=== PATIENT | female | born 1990 | race Caucasian/White ===

== ENCOUNTER 2017-11-23 16:12 | Observation (INO) ==
[2017-11-23 17:08] LABS: Basophils # 0.1 K/mcL (0.0-0.2); Basophils % 0.4 %; Bilirubin,Urine Negative (Negative); Blood,Urine Negative (Negative); Clarity,Urine Clear (Clear); Color,Urine Yellow (Yellow); Eosinophils # 0.2 K/mcL (0.0-0.6); Eosinophils % 1.2 %; Glucose,Urine (UA) Normal (Normal); Hematocrit 36.9 % (35.3-44.9); Hemoglobin 12.5 g/dL (11.5-15.4); Immature Granulocytes % 0.5 % (0-4); Ketones,Urine Negative (Negative); Leukocyte Esterase,Urine Small (Negative); Mean Corpuscular HGB Conc 33.9 g/dL (31.6-35.5); Mean Corpuscular Hemoglobin 31.8 pg (28.0-33.3); Mean Corpuscular Volume 93.9 fL (83.0-100.0); Mean Platelet Volume 9.6 fL (9.4-12.4); Monocytes % 6.8 %; Neutrophils # 10.1 K/mcL (1.6-8.9); Nitrite,Urine Negative (Negative); PH,Urine 6.5 pH Units (5.0-8.0); Platelet Count 271 K/mcL (140-400); Protein,Urine Negative (Neg-Trace); Red Blood Count 3.93 M/mcL (3.82-4.97); Red Cell Distribution Width 13.2 % (11.5-14.5); Segmented Neutrophils % 70.1 %; Specific Gravity,Urine 1.018 (1.010-1.025); Urobilinogen,Urine Normal (Normal)
[2017-11-23 17:10] LABS: Bacteria,Urine None Seen per hpf (None-Few); Hyaline Casts,Urine None Seen per lpf (None-Few); RBC,Urine 0-3 per hpf (0-3); Squamous Epithelial Cell,Urine Many per lpf (None-Few); WBC,Urine 0-3 per hpf (0-3)
[2017-11-23 17:20] LABS: Amphetamine Screen,Urine Negative ng/mL (Cutoff=1000); Barbiturate Screen,Urine Negative ng/mL (Cutoff=200); Benzodiazepines Screen,Urine Negative ng/mL (Cutoff=200); Cannabinoid Screen,Urine Negative ng/mL (Cutoff = 50); Cocaine Screen,Urine Negative ng/mL (Cutoff= 300); Opiate Screen,Urine Negative ng/mL (Cutoff=300); Phencyclidine Screen,Urine Negative ng/mL (Cutoff=25)
[2017-11-23 17:27] LABS: Alanine Aminotransferase 18 Units/L (7-52); Aspartate Amino Transferase 16 Units/L (13-39); BUN/Creatinine Ratio 17 (6-26); Blood Urea Nitrogen 10 mg/dL (6-20); Lactate Dehydrogenase 131 Units/L (140-271); Uric Acid 5.4 mg/dL (2.3-7.6); eGFR For Non-African Americans > 60 (> 60)
[2017-11-23 17:35] LABS: Protein/Creatinine Ratio,Urine 0.09 mg/mg (0.00-0.20)
--- NOTE | 2017-11-23 17:51 | OB/GYN Progress Note ---
Date of Encounter: 11/23/17 Time of Encounter: 17:48 - Assessment and Plan (1) 24 weeks gestation of Current Visit: Yes Status: Acute (2) Elevated blood pressure affecting in second trimester, antepartum Current Visit: Yes Status: Acute Will start labetalol 100mg PO BID per consultation with Dr. Lawler. Pt to follow -up for BP check on Tuesday in office. Preeclampsia precautions given. Discharge home. Subjective - Subjective Interval history: 27 year-old presenting at 24w4d with elevated blood pressure in office today. She reports occassional headaches that resolve after hydration. She denies any headache now. No vision changes or epigastric pain. No other complaints. Good FM. Pt reports she was on triamterene prior to but hasn't been on anything since prior to conception. Antepartum ROS: movement normal, no loss of fluid, no vaginal bleeding, no contractions Objective - Vital Signs Vital Signs: Intake and Output 11/23/17 11/23/17 11/23/17 07:59 15:59 23:59 Other: Weight 88.7 kg Patient Weight 11/23/17 23:59 Weight 88.7 kg - Exam FHR: category 1 FHR comments: FHT reassuring for GA, baseline 135 Auscultation: bilateral: normal Abdomen: Present: soft, gravid. Absent: tenderness Uterus: Absent: tenderness Comments: reflexes normal - Labs Labs: Abnormal lab results WBC 14.5 K/mcL (4.3-11.1) H 11/23/17 16:40 Neutrophils # 10.1 K/mcL (1.6-8.9) H 11/23/17 16:40 Creatinine 0.58 mg/dL (0.60-1.20) L 11/23/17 16:40 Lactate Dehydrogenase 131 Units/L (140-271) L 11/23/17 16:40 Ur Leukocyte Esterase Small (Negative) H 11/23/17 16:40 Ur Squamous Epith Cells Many per lpf (None-Few) H 11/23/17 16:40 Ur Culture Indicated? NO. (NO) A 11/23/17 16:40
== END 2017-11-23 17:51 | disposition home or self-care (01) ==
LOC: 1NENULAB
PROVIDERS: ADMIT Registered Nurse; ATTEND Registered Nurse

== ENCOUNTER 2018-02-20 14:49 | Observation (INO) ==
[2018-02-20 16:06] LABS: Basophils # 0.1 K/mcL (0.0-0.2); Basophils % 0.6 %; Eosinophils # 0.2 K/mcL (0.0-0.6); Eosinophils % 1.8 %; Hematocrit 39.8 % (35.3-44.9); Immature Granulocytes % 0.7 % (0-4); Lymphocytes # 2.3 K/mcL (0.6-4.6); Lymphocytes % 18.6 %; Mean Corpuscular HGB Conc 35.2 g/dL (31.6-35.5); Mean Corpuscular Hemoglobin 31.5 pg (28.0-33.3); Mean Corpuscular Volume 89.6 fL (83.0-100.0); Mean Platelet Volume 10.4 fL (9.4-12.4); Monocytes # 0.8 K/mcL (0.0-1.3); Monocytes % 6.8 %; Neutrophils # 8.6 K/mcL (1.6-8.9); Platelet Count 245 K/mcL (140-400); Red Blood Count 4.44 M/mcL (3.82-4.97); Red Cell Distribution Width 13.9 % (11.5-14.5); Segmented Neutrophils % 71.5 %
[2018-02-20 16:24] LABS: Alanine Aminotransferase 12 Units/L (7-52); Aspartate Amino Transferase 14 Units/L (13-39); BUN/Creatinine Ratio 14 (6-26); Blood Urea Nitrogen 8 mg/dL (6-20); Lactate Dehydrogenase 162 Units/L (140-271); Uric Acid 6.4 mg/dL (2.3-7.6); eGFR For Non-African Americans > 60 (> 60)
[2018-02-20 16:39] LABS: Amphetamine Screen,Urine Negative ng/mL (Cutoff=1000); Barbiturate Screen,Urine Negative ng/mL (Cutoff=200); Benzodiazepines Screen,Urine Negative ng/mL (Cutoff=200); Cannabinoid Screen,Urine Negative ng/mL (Cutoff = 50); Cocaine Screen,Urine Negative ng/mL (Cutoff= 300); Opiate Screen,Urine Negative ng/mL (Cutoff=300); Phencyclidine Screen,Urine Negative ng/mL (Cutoff=25); Protein/Creatinine Ratio,Urine 0.1 mg/mg (0.00-0.20)
--- NOTE | 2018-02-20 17:57 | Discharge Summary ---
Date of Encounter: 02/20/18 Time of Encounter: 17:57 - Discharge Diagnosis (1) 36 weeks gestation of Priority: Primary Status: Acute Comments: Patient sent from office for observation due to elevated blood pressure in (2) NST (non-stress test) reactive Priority: Secondary Status: Acute Comments: FHR 120bpm, moderate variability, +15x15 accels, no decels. Rare contraction (3) Gestational diabetes Priority: Secondary Status: Acute Comments: Continue metformin 3 times a day as previously ordered along with blood sugar checks as ordered by Dr. Mayfield Qualifiers: Gestational diabetes mellitus control: oral hypoglycemic-controlled Trimester: third trimester Qualified Code(s): O24.415 - Gestational diabetes mellitus in , controlled by oral hypoglycemic drugs (4) Gestational HTN Priority: Secondary Status: Acute Comments: Continue labetalol 100 mg twice a day. Follow-up in office on Tuesday for blood pressure check and scheduled NST Qualifiers: Trimester: third trimester Qualified Code(s): O13.3 - Gestational [-induced] hypertension without significant proteinuria, third trimester - Discharge Medications Home Medications: Citalopram Hydrobromide [Celexa] 20 mg PO DAILY 11/23/17 [History] Labetalol [Trandate] 100 mg PO BID #60 tablet 11/23/17 [Rx] Pnv Cmb#21/Iron/Folic Acid [ Complete Caplet] 1 each PO DAILY 11/23/17 [History] metFORMIN 500 mg PO TID 02/20/18 [History] Allergies/Adverse Reactions: Allergy/AdvReac Type Severity Reaction Status Date / Time No Known Allergies Allergy Verified 11/03/15 14:58 Data Procedures and tests throughout hospitalization: Laboratory Tests 02/20/18 02/20/18 02/20/18 15:40 15:40 15:45 WBC 12.1 H RBC 4.44 Hgb 14.0 Hct 39.8 MCV 89.6 MCH 31.5 MCHC 35.2 RDW 13.9 Plt Count 245 MPV 10.4 Immature Gran % 0.7 Seg Neutrophils % 71.5 Lymphocytes % 18.6 Monocytes % 6.8 Eosinophils % 1.8 Basophils % 0.6 Neutrophils # 8.6 Lymphocytes # 2.3 Monocytes # 0.8 Eosinophils # 0.2 Basophils # 0.1 BUN Creatinine Est GFR ( Amer) Est GFR (Non-Af Amer) BUN/Creatinine Ratio POC Glucose Uric Acid AST ALT Lactate Dehydrogenase Urine Creatinine 135 Protein/Creatinin Ratio 0.10 Urine Total Protein 13 Urine Opiates Screen Negative Ur Barbiturates Screen Negative Ur Phencyclidine Scrn Negative Ur Amphetamines Screen Negative U Benzodiazepines Scrn Negative Urine Cocaine Screen Negative U Marijuana (THC) Screen Negative Ur Drug Screen Interp See Below 02/20/18 02/20/18 15:46 16:58 WBC RBC Hgb Hct MCV MCH MCHC RDW Plt Count MPV Immature Gran % Seg Neutrophils % Lymphocytes % Monocytes % Eosinophils % Basophils % Neutrophils # Lymphocytes # Monocytes # Eosinophils # Basophils # BUN 8 Creatinine 0.56 L Est GFR ( Amer) > 60 Est GFR (Non-Af Amer) > 60 BUN/Creatinine Ratio 14 POC Glucose 88 Uric Acid 6.4 AST 14 ALT 12 Lactate Dehydrogenase 162 Urine Creatinine Protein/Creatinin Ratio Urine Total Protein Urine Opiates Screen Ur Barbiturates Screen Ur Phencyclidine Scrn Ur Amphetamines Screen U Benzodiazepines Scrn Urine Cocaine Screen U Marijuana (THC) Screen Ur Drug Screen Interp Labs on day of discharge: Labs from last 24 hours 02/20/18 02/20/18 02/20/18 16:58 15:46 15:45 WBC 12.1 H RBC 4.44 Hgb 14.0 Hct 39.8 MCV 89.6 MCH 31.5 MCHC 35.2 RDW 13.9 Plt Count 245 MPV 10.4 Immature Gran % 0.7 Seg Neutrophils % 71.5 Lymphocytes % 18.6 Monocytes % 6.8 Eosinophils % 1.8 Basophils % 0.6 Neutrophils # 8.6 Lymphocytes # 2.3 Monocytes # 0.8 Eosinophils # 0.2 Basophils # 0.1 BUN 8 Creatinine 0.56 L Est GFR ( Amer) > 60 Est GFR (Non-Af Amer) > 60 BUN/Creatinine Ratio 14 POC Glucose 88 Uric Acid 6.4 AST 14 ALT 12 Lactate Dehydrogenase 162 Urine Creatinine Protein/Creatinin Ratio Urine Total Protein Urine Opiates Screen Ur Barbiturates Screen Ur Phencyclidine Scrn Ur Amphetamines Screen U Benzodiazepines Scrn Urine Cocaine Screen U Marijuana (THC) Screen Ur Drug Screen Interp 02/20/18 02/20/18 15:40 15:40 WBC RBC Hgb Hct MCV MCH MCHC RDW Plt Count MPV Immature Gran % Seg Neutrophils % Lymphocytes % Monocytes % Eosinophils % Basophils % Neutrophils # Lymphocytes # Monocytes # Eosinophils # Basophils # BUN Creatinine Est GFR ( Amer) Est GFR (Non-Af Amer) BUN/Creatinine Ratio POC Glucose Uric Acid AST ALT Lactate Dehydrogenase Urine Creatinine 135 Protein/Creatinin Ratio 0.10 Urine Total Protein 13 Urine Opiates Screen Negative Ur Barbiturates Screen Negative Ur Phencyclidine Scrn Negative Ur Amphetamines Screen Negative U Benzodiazepines Scrn Negative Urine Cocaine Screen Negative U Marijuana (THC) Screen Negative Ur Drug Screen Interp See Below Date of admission: 02/20/18 14:49 Primary care physician: PCP NONE Discharging clinician: Gertrudis Rios Anticipated date of discharge: 02/20/18 - Patient Status Disposition: Home, Self-Care Condition: Good Functional capacity at discharge: independent ambulation Overall status at discharge: patient is progressing back to baseline - Discharge Instructions Instructions: Preeclampsia and Eclampsia (DC) Follow Up With: NONE,PCP [Primary Care Provider] - Additional Instructions: Return to office on Tuesday02/24/18 for BP check - Diet and Activity Activity: resume usual activities as tolerated Diet: diabetic diet Hospital Course [employer] Hospital course: Patient arrived from the office for elevated blood pressures. PIH labs all returned within normal limits. Occasional elevated blood pressure noted here in labor and delivery. Dr. Saul was consulted for plan of care. Patient will be discharged home to be seen in office on Tuesday for blood pressure check. Patient had a reactive NST while here. Cervix 1 cm/60%/-2 station Time Attestation: Total time spent providing and/or coordinating discharge services: Time Spent: Less than 30 minutes Exam - Constitutional General appearance IM: A&O X 3, pleasant, no acute distress, answers questions appropriately - Respiratory Respiratory exam: Present: CTAB - Cardiovascular Cardiovascular exam IM: Present: RRR, +S1, +S2 - GI/Abdominal GI/Abdominal exam IM: normal bowel sounds - Rectal Rectal exam: deferred - External exam: normal external exam - Extremities Exam Extremities exam IM: Present: full ROM, normal capillary refill, normal inspection - Neurological Exam Neurological exam: alert, normal gait, oriented X3, reflexes normal - VTE Reasons for not Prescribing Prophylaxis: Treatment not Indicated - Low risk for VTE
== END 2018-02-20 18:15 | disposition home or self-care (01) ==
LOC: 1NENULAB
PROVIDERS: ADMIT Registered Nurse; ATTEND Registered Nurse

== ENCOUNTER 2018-02-22 19:35 | Observation (INO) ==
[2018-02-22 19:56] VITALS: BP 151/83
[2018-02-22 20:34] LABS: Protein/Creatinine Ratio,Urine 0.11 mg/mg (0.00-0.20)
[2018-02-22 20:35] LABS: Basophils # 0.1 K/mcL (0.0-0.2); Basophils % 0.5 %; Eosinophils # 0.2 K/mcL (0.0-0.6); Eosinophils % 1.4 %; Hematocrit 39.4 % (35.3-44.9); Hemoglobin 13.4 g/dL (11.5-15.4); Immature Granulocytes % 0.5 % (0-4); Lymphocytes # 2.9 K/mcL (0.6-4.6); Lymphocytes % 22.9 %; Mean Corpuscular Hemoglobin 31.5 pg (28.0-33.3); Mean Corpuscular Volume 92.5 fL (83.0-100.0); Mean Platelet Volume 10.4 fL (9.4-12.4); Monocytes # 0.9 K/mcL (0.0-1.3); Neutrophils # 8.5 K/mcL (1.6-8.9); Platelet Count 232 K/mcL (140-400); Red Blood Count 4.26 M/mcL (3.82-4.97); Red Cell Distribution Width 13.9 % (11.5-14.5); Segmented Neutrophils % 67.7 %
[2018-02-22 20:46] LABS: Alanine Aminotransferase 12 Units/L (7-52); Aspartate Amino Transferase 13 Units/L (13-39); BUN/Creatinine Ratio 16 (6-26); Blood Urea Nitrogen 9 mg/dL (6-20); Lactate Dehydrogenase 136 Units/L (140-271); Uric Acid 6.2 mg/dL (2.3-7.6); eGFR For Non-African Americans > 60 (> 60)
[2018-02-22 21:05] LABS: Amphetamine Screen,Urine Negative ng/mL (Cutoff=1000); Barbiturate Screen,Urine Negative ng/mL (Cutoff=200); Benzodiazepines Screen,Urine Negative ng/mL (Cutoff=200); Cannabinoid Screen,Urine Negative ng/mL (Cutoff = 50); Cocaine Screen,Urine Negative ng/mL (Cutoff= 300); Opiate Screen,Urine Negative ng/mL (Cutoff=300); Phencyclidine Screen,Urine Negative ng/mL (Cutoff=25)
--- NOTE | 2018-02-23 08:09 | OB/GYN Progress Note ---
Date of Encounter: 02/22/18 Time of Encounter: 21:00 - Assessment and Plan (1) Gestational HTN Status: Acute BP borderline - responded to additional 100mg labetalol PO - decrease to 120s/80s Increase labetalol to 200 mg twice a day Qualifiers: Trimester: third trimester Qualified Code(s): O13.3 - Gestational [-induced] hypertension without significant proteinuria, third trimester (2) Gestational diabetes Status: Acute Continue monitoring and treatment as planned Qualifiers: Gestational diabetes mellitus control: oral hypoglycemic-controlled Trimester: third trimester Qualified Code(s): O24.415 - Gestational diabetes mellitus in , controlled by oral hypoglycemic drugs (3) NST (non-stress test) reactive Status: Acute (4) 37 weeks gestation of Status: Acute Follow-up with Dr. Mayfield as scheduled Labor parameters discussed Discharge home Subjective - Subjective Principal diagnosis: elevated bp in pregnany Interval history: Ms. Thompson presents with reports of elevated blood pressures on home monitoring. She endorses good fm and denies lof, vb, ctx. She reports a headache earlier in the day which has now resolved and denies epigastric pain and vision changes. She states she takes labetalol 100 mg twice a day. She took her evening dose at 1830 this evening Antepartum ROS: movement normal, other (elevated bp), no loss of fluid, no vaginal bleeding, no contractions Objective - Vital Signs Vital Signs: Vital Signs Pulse Resp BP 02/22/18 19:47 73 15 151/83 Intake and Output 02/22/18 02/23/18 02/23/18 23:59 07:59 15:59 Other: Weight 96.4 kg - Exam FHR: category 1 Auscultation: bilateral: normal Abdomen: Present: normal appearance, soft, gravid Uterus: Present: normal, firm - Labs Labs: Abnormal lab results WBC 12.5 K/mcL (4.3-11.1) H 02/22/18 20:10 Creatinine 0.58 mg/dL (0.60-1.20) L 02/22/18 20:10 Lactate Dehydrogenase 136 Units/L (140-271) L 02/22/18 20:10 Urine Total Protein 19 mg/dL (1-14) H 02/22/18 20:10
== END 2018-02-22 22:06 | disposition home or self-care (01) ==
LOC: 1NENULAB
PROVIDERS: ADMIT Advanced Practice Midwife; ATTEND Advanced Practice Midwife

== ENCOUNTER 2018-03-08 06:00 | Inpatient (IN) ==
[2018-03-08] MEDS ORDERED: Ringers Solution, Lactated 1,000 ML ONE (06:14)
[2018-03-08] MEDS ORDERED: Ondansetron 4 MG/2 ML VIAL IVP PRN (06:21)
[2018-03-08] MEDS ORDERED: Metoclopramide 10 MG/2 ML VIAL IVP PRN (06:21)
[2018-03-08] MEDS ORDERED: Famotidine 20 MG/2 ML VIAL IVP PRN (06:21)
[2018-03-08] MEDS ORDERED: Naloxone 0.4 MG/ML INJ IVP PRN (06:21)
[2018-03-08] MEDS ORDERED: *HR* Nalbuphine 10 MG/ML AMPUL IVP PRN (06:21)
[2018-03-08] MEDS ORDERED: Ringers Solution, Lactated 1,000 ML IVC SCH (06:30)
[2018-03-08] MEDS ORDERED: Oxytocin 20 units/ LR 1000 mL 20 UNIT/1,000 ML BAG IVC SCH (06:30)
[2018-03-08 06:42] LABS: Basophils # 0.1 K/mcL (0.0-0.2); Basophils % 0.5 %; Eosinophils # 0.1 K/mcL (0.0-0.6); Eosinophils % 0.9 %; Hematocrit 42.4 % (35.3-44.9); Hemoglobin 14.3 g/dL (11.5-15.4); Immature Granulocytes % 0.8 % (0-4); Lymphocytes # 3.6 K/mcL (0.6-4.6); Lymphocytes % 27.2 %; Mean Corpuscular HGB Conc 33.7 g/dL (31.6-35.5); Mean Corpuscular Volume 91.8 fL (83.0-100.0); Mean Platelet Volume 11.3 fL (9.4-12.4); Monocytes # 0.8 K/mcL (0.0-1.3); Monocytes % 6.4 %; Neutrophils # 8.5 K/mcL (1.6-8.9); Platelet Count 244 K/mcL (140-400); Red Blood Count 4.62 M/mcL (3.82-4.97); Red Cell Distribution Width 13.7 % (11.5-14.5); Segmented Neutrophils % 64.2 %
[2018-03-08 06:45] LABS: Amphetamine Screen,Urine Negative ng/mL (Cutoff=1000); Barbiturate Screen,Urine Negative ng/mL (Cutoff=200)
[2018-03-08 06:47] LABS: Benzodiazepines Screen,Urine Negative ng/mL (Cutoff=300); Cannabinoid Screen,Urine Negative ng/mL (Cutoff = 50); Cocaine Screen,Urine Negative ng/mL (Cutoff= 300); Opiate Screen,Urine Negative ng/mL (Cutoff=300); Phencyclidine Screen,Urine Negative ng/mL (Cutoff=25)
[2018-03-08 07:01] LABS: Glucose 107 mg/dL (70-105)
[2018-03-08 08:22] LABS: Alanine Aminotransferase 17 Units/L (7-52); Aspartate Amino Transferase 19 Units/L (13-39); BUN/Creatinine Ratio 16 (6-26); Blood Urea Nitrogen 11 mg/dL (6-20); Lactate Dehydrogenase 201 Units/L (140-271); Uric Acid 7.3 mg/dL (2.3-7.6); eGFR For Non-African Americans > 60 (> 60)
--- NOTE | 2018-03-08 08:38 | OB/GYN History & Physical ---
Date of Encounter: 03/08/18 Time of Encounter: 08:32 Assessment and Plan (1) 39 weeks gestation of Current visit: Yes Status: Acute Augmentation of labor (2) Chronic hypertension affecting Current visit: Yes Status: Acute Given the additional labetalol to make her 200 mg dose this morning. Continue to monitor for s/sx pre-e. Labs pending this AM (3) SROM (spontaneous rupture of membranes) Current visit: Yes Status: Acute Pitocin augmentation in anticipation of vaginal delivery. Now 11 hours since SROM and not symone regularly. GBS is negative. Will monitor temp throughout labor and . (4) Gestational diabetes Current visit: No Status: Acute accuchecks q 2 hours Qualifiers: Gestational diabetes mellitus control: oral hypoglycemic-controlled Trimester: third trimester Qualified Code(s): O24.415 - Gestational diabetes mellitus in , controlled by oral hypoglycemic drugs History of Present Illness Chief complaint: induction of labor HPI: Ms. Thompson is a 27 year old female G1 at 39 4/7 weeks presents to labor and delivery for induction of labor due to term with chronic hypertension and gestational diabetes. She states last night around 9 PM she felt warmth between her legs and fluid. She was unsure if it was just mucus. She slept and got up this morning to shower and had clear fluid run down her legs. She denies any contractions or vaginal bleeding. She reports good movement. She is unsure if she has felt any more leaking since this morning. She took half of her labetalol dose this morning because she does not like the way she feels with a full dose. She is a gestational diabetic controlled on TID metformin. GBS negative 02/09/18 O positive Rubella immune varicella immune hep b negative HIV negative Past Med Surg Social Fam HX - Past Medical History Medical history: hypertension Additional medical history: pt reports had HTN before Psychiatric history: anxiety, depression - Past Surgical History Surgical History: other Additional surgical history: T&A - Social History Smoking Status: Never smoker Smokeless Tobacco Status: No Alcohol use: rarely Drug use: none - Family History Father Adopted: No Family Member Ethnicity: Non- Living Status: Still Living Hx Family Cardiac Disorders: No Hx Family Respiratory Disorders: No Hx Family Cancer: No Hx Family GI Disorders: No Hx Family Genitourinary Disorders: No Hx Family Endocrine Disorder: Yes (type 2) Hx Family Musculoskeletal Disorders: No Hx Family Neuromuscular Disorders: No Hx Family Neurologic Disorders: No Hx Family HEENT Disorders: No Hx Family Autoimmune Disorders: No Hx Family Reproductive Disorders: No Hx Family Psychosocial Disorders: No Hx Family Medical Disorders: No Obstetrical History - Pregnancies : 1 - History/Complications History/Complications: chronic hypertension, GDM A2 on Metformin Medications and Allergies Citalopram Hydrobromide [Celexa] 20 mg PO DAILY 11/23/17 [History] Pnv Cmb#21/Iron/Folic Acid [ Complete Caplet] 1 each PO DAILY 11/23/17 [History] metFORMIN 500 mg PO TID 02/20/18 [History] Labetalol HCl 200 mg PO BID #30 tablet 02/22/18 [Rx] Allergy/AdvReac Type Severity Reaction Status Date / Time No Known Allergies Allergy Verified 03/08/18 06:17 Review of System OB All systems PM: reviewed and no additional remarkable complaints except as stated - Constitutional Constitutional ROS IM: no chills, no fever(s), no headache(s) - Cardiovascular Cardiovascular: no chest pain - Respiratory Respiratory: no cough, no dyspnea - Gastrointestinal Gastrointestinal: cramping, no abdominal pain, no nausea, no vomiting - Menstruation Menstruation: amenorrhea - Psychiatric Psychiatric: anxiety (regarding induction with possible bethea catheter) Exam - Constitutional Constitutional: well developed, well nourished, no acute distress, obese - HEENT HEENT: EOMI - Neck Neck exam: full ROM - Lungs Respiratory exam: CTAB - Cardiovascular Cardiovascular exam: RRR - Abdomen Abdomen: Present: bowel sounds normal, gravid, non tender - Extremities Extremities exam: warm - Vulva Vulva: bilateral: normal - Vagina Vagina: Present: discharge (pooling, + nitrazine, + ferning) - Cervix Dilation: 1 (on 03/02/18) - Anus/Rectum Anus/Rectum: Present: normal perianal skin Results Result Diagrams: 03/08/18 06:28 03/08/18 06:28 Abnormal lab results WBC 13.2 K/mcL (4.3-11.1) H 03/08/18 06:28 Glucose 107 mg/dL (70-105) H 03/08/18 06:28 All other labs normal. US - abdomen: report reviewed (EFW 3094 gm with DANIELA 11 cm and BPP 8/8 Cephalic presentation on 03/02/18) - VTE Reasons for not Prescribing Prophylaxis: Medical contraindication
[2018-03-08] MEDS ORDERED: *HR* Labetalol 20 MG/4 ML SYRINGE IVP STA ×3 (09:05→12:05)
[2018-03-08 11:22] LABS: Protein/Creatinine Ratio,Urine 0.1 mg/mg (0.00-0.20)
--- NOTE | 2018-03-08 11:24 | Anesthesia Evaluation PreOp ---
Date of Encounter: 03/08/18 Time of Encounter: 11:22 - Past History Planned Operation: GUERLINE Cardiac History: HTN (uncontrolled) Pulmonary History: Denies Any Significant HX SONG PLUGGER History: Other (anxiety, depression) Other Medical History: Other (gestational DM managed w/ metformin) Anesthesia History: No Prior Anesthetic Complications (never had NA; denies personal and family h/o GA complications) : Yes Alcohol Use: rarely Drug use: none Medications and Allergies Citalopram Hydrobromide [Celexa] 20 mg PO DAILY 11/23/17 [History] Pnv Cmb#21/Iron/Folic Acid [ Complete Caplet] 1 each PO DAILY 11/23/17 [History] metFORMIN 500 mg PO TID 02/20/18 [History] Labetalol HCl 200 mg PO BID #30 tablet 02/22/18 [Rx] Allergy/AdvReac Type Severity Reaction Status Date / Time No Known Allergies Allergy Verified 03/08/18 06:17 - Meds/Allergy Pre-op Review Medications Reviewed: Yes Allergies Reviewed: Yes Beta Blockers on Current Med List: Yes If Beta Blockers taken, Date/Time (Last Dose taken): 03/08/2018 @1100 Anesthesia Results - Labs 03/08/18 06:28 03/08/18 06:28 Anesthesia Exam 188/96, HR 75 O2 Sat Height 1.6 m Height 1.6 m Weight 99 kg Weight 99 kg NPO (# of Hours): solids > 8hrs Pain Scale: 0 Pain Scale Used: Numeric (1 - 10) - HEENT Pupil (Motor): Pupils equal Mallampati: II Teeth: Normal Oral Opening: Greater than 3 - SONG PLUGGER LOC: Oriented SONG PLUGGER Motor: Normal RUE, Normal LUE, Normal RLE, Normal LLE, Normal Face SONG PLUGGER Sensory: Normal: RUE, LUE, RLE, LLE, Face - Cardiac Rhythm: Regular Murmur: None - Pulmonary Breath Sounds: bilateral Clear Respiratory Effort: Symmetrical Anesthesia Assess/Plan ASA Score: 2 Level of consciousness: Cooperative, Oriented, Tranquil Anesthetic Plan: Epidural Autologous Blood: No Monitoring Plan: Standard Monitors Recovery Plan: Other
[2018-03-08] MEDS ORDERED: *HR* FentaNYL (PF) 100 MCG/2 ML VIAL EP ONE (11:27)
[2018-03-08] MEDS ORDERED: Bupivacaine-MPF 0.25% 10 ML VIAL EP ONE (11:27)
[2018-03-08] MEDS ORDERED: Lidocaine -MPF 1% 5 ML AMPUL ONE (11:28)
[2018-03-08] MEDS ORDERED: Bupivacaine-MPF 0.25% 10 ML VIAL ONE (11:28)
[2018-03-08] MEDS ORDERED: *HR* FentaNYL (PF) 100 MCG/2 ML VIAL ONE (11:28)
[2018-03-08] MEDS ORDERED: Epidural Premix (fent/bupiv) 110 ML EP SCH (11:30)
--- NOTE | 2018-03-08 14:28 | Anesthesia Procedures ---
Date of Encounter: 03/08/18 Time of Encounter: 13:59 Procedures: Anesthesia - Epidural/Spinal Patient ID/Chart reviewed: Yes Patient examined: Yes OB Eval: Gestational age: 39 weeks 4 days OB Eval: : 1 OB Eval: Hx Para: 0 OB Eval: Contractions: Non-stressed pattern Consent Obtained: Yes Supplemental Oxygen: None/Room Air Site Prep: Aseptic Technique, Sterile prep and drape, Povidone-Iodine 1% Patient position: upright Local Anesthetic: Lidocaine 1% Amount of Local Anesthetic used: 3 Touhy Needle Gauge: 18 Touhy Needle Depth (cm): 7 Catheter Depth at Skin (cm): 12 Test Dose (1.5% Lido + Epi): Volume given (mls): 5 Test Dose Result: Negative Loading Dose: 0.25% Marcaine (mls): 5 Loading Dose: Fentanyl (mcg): 100 Loading Dose Administered: Thru Catheter Infusion Med: 0.125% Bupivacaine w/ 2 mcg/ml Fentanyl Infusion Rate (mls/hr): 14 (w/ demand bolus of 5mL q30min PRN) Catheter Secured in Place: Tegaderm, Tape Interspace Used: L4-L5 Loss of Resistance (REECE): Yes Blood: No CSF: No Paresthesia: No Procedure: successful on 1st attempt; patient tolerated procedure well; VSS Vitals + FHT's: see electronic records for VS entry
[2018-03-08] MEDS ORDERED: *HR* Phenylephrine 10 MG/ML VIAL ONE (14:34)
--- NOTE | 2018-03-08 14:58 | OB Labor Progress Note ---
Date of Encounter: 03/08/18 Time of Encounter: 14:55 Labor Progress Note - Subjective Subjective: Pt comfortable with epidural. - Vital Signs Vital Signs: BP normal range since epidural. - Cervix Cervix: 3/80/-2 - Heart Tones Heart Tones: Late decels noted following completion of epidural procedure. Pt repositioned multiple times. Pitocin off. IV LR bolusing. Oxygen started. - [place] Har[place]: 2-3.5 minutes - Interventions Interventions: Repositioning, oxygen, fluid bolus. Pitocin off. IUPC and FSE placed. - Plan Physician notified: Yes Plan: Dr. Mayfield aware of FHT tracing and interventions.
--- NOTE | 2018-03-09 02:22 | OB Labor Progress Note ---
Date of Encounter: 03/09/18 Time of Encounter: 02:20 Labor Progress Note - Subjective Subjective: Pt comfortable with epidural. - Vital Signs Vital Signs: BP's mild range - Cervix Cervix: 5/80/-2 - Heart Tones Heart Tones: Category II, periods of minimal variability. - [place]: irregular - Interventions Interventions: New FSE placed. - Plan Physician notified: Yes Physician notified details: Dr. Mayfield aware
[2018-03-09] MEDS ORDERED: Penicillin G Potassium 5,000,000 UNIT in 0.9 % Sodium Chloride Mini Bag 100 ML IVPB ONE (08:22)
[2018-03-09] MEDS ORDERED: *HR* Labetalol 20 MG/4 ML SYRINGE IVP ONE ×6 (09:55→18:59)
--- NOTE | 2018-03-09 10:39 | OB Labor Progress Note ---
Date of Encounter: 03/09/18 Time of Encounter: 10:00 Labor Progress Note - Subjective Subjective: Patient comfortable with epidural - Vital Signs Vital Signs: Per RN report as to blood pressures that were 15 minutes apart greater than 160 over greater than 110. Dr. Garvey consulted and agreed to restart labetalol administration tree. - Cervix Cervix: Unchecked at this time - Heart Tones Heart Tones: Baseline 120 Moderate variability Accelerations present 15 x 15 No decelerations FHR category I - [place]: IUPC contractions every 2-4 - Interventions Interventions: Labetalol administered IV slow push. Blood pressure rechecked at 10 minutes and found to be 158/86. No further administration of medication at this time - Plan Physician notified: No Plan: Continue management Recheck BP q [address] Garvey aware of POC and agrees
--- NOTE | 2018-03-09 11:44 | OB Labor Progress Note ---
Date of Encounter: 03/09/18 Time of Encounter: 11:41 Labor Progress Note - Subjective Subjective: Patient comfortable with contractions. - Cervix Cervix: 7/100/-1 - Heart Tones Heart Tones: Baseline 120 Moderate variability Accelerations present 15x15 Few variable decelerations FHR Category II - [place]: IUPC contractions every 2-3 minutes - Interventions Interventions: SVE Position change to deep right lateral - Plan Physician notified: No Plan: Continue active management Frequent position changes Increase pitocin per protocol Anticipate
[2018-03-09] MEDS ORDERED: *HR* Ropivacaine/PF 0.2% 20 ML VIAL ONE (12:59)
[2018-03-09] MEDS: Penicillin G Potassium 2,500,000 UNIT in 0.9 % Sodium Chloride 100 ML IVPB SCH ×2 (13:33→17:27)
--- NOTE | 2018-03-09 15:47 | OB Labor Progress Note ---
Date of Encounter: 03/09/18 Time of Encounter: 15:42 Labor Progress Note - Subjective Subjective: Patient comfortable with epidural but does not tolerate vaginal exams. - Cervix Cervix: 6-7/90/-1 - Heart Tones Heart Tones: Baseline 120 Moderate variability No accelerations Variable decelerations FHR Category II - [place]: IUPC with contractions every 2-5 - Interventions Interventions: SVE - Plan Physician notified: No Plan: Continue management Consult with Dr. Garvey for category II tracing. Continue as planned Anticipate
--- NOTE | 2018-03-09 17:03 | OB Labor Progress Note ---
Date of Encounter: 03/09/18 Time of Encounter: 17:01 Labor Progress Note - Subjective Subjective: Patient comfortable with epidural. Does not tolerate vaginal exams - Cervix Cervix: 6-7/90/-1 - Heart Tones Heart Tones: Baseline 120 Moderate variability Accelerations 15x15 Few variable decelerations FHR Category II - [place]: IUPC with contractions every 2-3 minutes. - Interventions Interventions: SVE Conversation regarding - brought up by patient - Dr. Garvey made aware and agreeable to assume care. - Plan Physician notified: Yes Physician notified details: Dr. Garvey aware that patient is requesting . Agreeable to assume care and proceed with c/s Plan: Stop expectant mangement Transfer of care to Dr. Garvey
[2018-03-09] MEDS ORDERED: Lidocaine/EPI 1:200k 2% PF 20 ML VIAL ONE (19:27)
[2018-03-09] MEDS ORDERED: *HR* Oxytocin 10 UNIT/ML VIAL IM ONE (19:29)
[2018-03-09] MEDS ORDERED: Ringers Solution, Lactated 1,000 ML ONE ×2 (19:49→20:50)
[2018-03-09] MEDS ORDERED: *HR* Morphine Sulfate/PF 10 MG/10 ML AMPUL ONE (20:13)
[2018-03-09] MEDS ORDERED: Ondansetron 4 MG/2 ML VIAL IVP PRN (20:47)
[2018-03-09] MEDS ORDERED: Oxytocin 20 units/ LR 1000 mL 20 UNIT/1,000 ML BAG IVC SCH (20:47)
[2018-03-09] MEDS ORDERED: Simethicone 80 MG TAB.CHEW PO PRN (20:47)
[2018-03-09] MEDS ORDERED: Acetaminophen 325 MG TABLET PO PRN (20:47)
[2018-03-09] MEDS ORDERED: Metoclopramide 10 MG/2 ML VIAL IVP PRN (20:47)
[2018-03-09] MEDS ORDERED: Sennosides 8.6 MG TABLET PO PRN (20:47)
--- NOTE | 2018-03-09 20:49 | OB/GYN Procedure Note ---
Section - Date of procedure: 03/09/18 Preop diagnosis: arrest of descent, arrest of dilation Post-op diagnosis: same Procedure: repeat low transverse Surgeon: Gage Goode Blood Loss: 500 Was there an process assistant present: No Anesthesiologist: Deanna Ramos Anesthesia Type: Epidural section complications: none Disposition: PACU Specimens: Placenta - (s) A Infant Delivery Date: 03/09/18 Presentation: vertex Position: ALEIDA Gender: Male Viability: Viable Pounds: 6 Ounces: 12 Gram Weight: 3055 kg at 1 minute: 1 at 5 minutes: 2 at 10 minutes: 5 /15 Shoulder Dystocia: not encountered Placenta: complete extraction - Narrative Narrative: Patient taken to the operating room. Following completion of the vaginal prep bradycardia in the 90s was noted. She is prepped and draped in usual manner. After appropriate timeout and anesthesia was achieved, abdomen was entered through standard Maylard incision. The Angélica retractor was placed. Peritoneum overlying the lower uterine segment was incised in U-shaped fashion. Uterine cavity was entered sharply extended laterally. With fundal pressure head was delivered. There is umbilical cord down by the baby's head and by the shoulder consistent with impending cord prolapse. The infant was delivered, umbilical cord double clamped cut, and infant was handed to nursery staff for further evaluation. Placenta was removed and sent to pathology for analysis. Uterus was closed with 0 Monocryl. After assurance hemostasis the abdomen was closed standard fashion using 0 PDS on the fascia and 4-0 Monocryl in the skin. Sterile dressing was applied. Patient did well was taken to recovery room in satisfactory condition. Counts were correct.
[2018-03-09] MEDS ORDERED: Acetaminophen IV 1,000 MG/100 ML INFUS..BTL IVPB ONE (20:52)
[2018-03-09] MEDS ORDERED: *HR* Metformin 500 MG TABLET PO SCH (21:00)
--- NOTE | 2018-03-09 21:06 | OB/GYN History & Physical ---
Date of Encounter: 03/09/18 History of Present Illness HPI: Ms. Thompson is a 27 year old female Past Med Surg Social Fam HX - Past Medical History Medical history: hypertension Additional medical history: pt reports had HTN before Psychiatric history: anxiety, depression - Past Surgical History Surgical History: other Additional surgical history: T&A - Social History Smoking Status: Never smoker Smokeless Tobacco Status: No Alcohol use: rarely Drug use: none - Family History Father Adopted: No Family Member Ethnicity: Non- Living Status: Still Living Hx Family Cardiac Disorders: No Hx Family Respiratory Disorders: No Hx Family Cancer: No Hx Family GI Disorders: No Hx Family Genitourinary Disorders: No Hx Family Endocrine Disorder: Yes (type 2) Hx Family Musculoskeletal Disorders: No Hx Family Neuromuscular Disorders: No Hx Family Neurologic Disorders: No Hx Family HEENT Disorders: No Hx Family Autoimmune Disorders: No Hx Family Reproductive Disorders: No Hx Family Psychosocial Disorders: No Hx Family Medical Disorders: No Obstetrical History - Pregnancies : 1 Medications and Allergies Citalopram Hydrobromide [Celexa] 20 mg PO DAILY 11/23/17 [History] Pnv Cmb#21/Iron/Folic Acid [ Complete Caplet] 1 each PO DAILY 11/23/17 [History] metFORMIN 500 mg PO TID 02/20/18 [History] Labetalol HCl 200 mg PO BID #30 tablet 02/22/18 [Rx] Allergy/AdvReac Type Severity Reaction Status Date / Time No Known Allergies Allergy Verified 03/08/18 06:17 Results Result Diagrams: 03/08/18 06:28 03/08/18 06:28 Abnormal lab results WBC 13.2 K/mcL (4.3-11.1) H 03/08/18 06:28 Glucose 107 mg/dL (70-105) H 03/08/18 06:28 Urine Total Protein 15 mg/dL (1-14) H 03/08/18 06:28 All other labs normal. - VTE Reasons for not Prescribing Prophylaxis: Medical contraindication Attending MD Adm Certification - Admission Certification Admission Certification: For traditional Medicare patients the provided hospital inpatient services are reasonable and necessary and in the case of services not specified as inpatient-only under 42 CFR 419.22 (n), that they are appropriately provided as inpatient services in accordance 42 CFR 412.3. For Critical Access Hospital the patient may reasonably be expected to be discharged or transferred to a hospital within 96 hours after admission to the Critical Access Hospital. [facility] Certification: I certify that the beneficiary may reasonable be expected to be discharged or transferred to a hospital within 96 hours after admission to the Critical Access Hospital ([facility]). Attestation: My signature below is to certify that this patient is under my care and that I, or nurse practitioner, or a physician's microbiology lab assistant working with me, has a [id number] encounter with this patient.
[2018-03-09] MEDS: Magnesium Sulfate 20 gm/500mL 20 GM/500 ML IV.SOLN IVC SCH (21:33)
[2018-03-09] MEDS: Azithromycin 500 MG in D5% in Water 250 ML IVPB SCH (21:59)
--- NOTE | 2018-03-09 23:33 | Anesthesia Evaluation Post Op ---
Date of Encounter: 03/09/18 Time of Encounter: 23:32 - Lungs Lungs: Clear Ascult./Percussion - Airway Airway: Non-obstructed - Cardiovascular Regular Rate - Mental Status Mental Status: Alert & Oriented, Answers Appropriately - Pain Pain Scale: 2 - Nausea Vomiting Nausea Vomiting: Not Present - Hydration Hydration: Tolerates oral liquids, Mendoza catheter - Discharge PostOp Status: Transfer Patient to floor
[2018-03-10] MEDS ORDERED: Calcium Gluconate 1,000 MG/10 ML VIAL IVPB ONE (00:45)
[2018-03-10 06:37] LABS: Protein/Creatinine Ratio,Urine 0.47 mg/mg (0.00-0.20)
[2018-03-10] MEDS: Magnesium Sulfate 20 gm/500mL 20 GM/500 ML IV.SOLN IVC SCH ×2 (06:53→17:03)
[2018-03-10 06:56] LABS: Basophils # 0.1 K/mcL (0.0-0.2); Basophils % 0.5 %; Hematocrit 39.2 % (35.3-44.9); Hemoglobin 13.1 g/dL (11.5-15.4); Immature Granulocytes % 0.9 % (0-4); Lymphocytes # 2.2 K/mcL (0.6-4.6); Lymphocytes % 9.2 %; Mean Corpuscular HGB Conc 33.4 g/dL (31.6-35.5); Mean Corpuscular Hemoglobin 31.2 pg (28.0-33.3); Mean Corpuscular Volume 93.3 fL (83.0-100.0); Mean Platelet Volume 10.7 fL (9.4-12.4); Monocytes # 1.8 K/mcL (0.0-1.3); Monocytes % 7.5 %; Neutrophils # 19.4 K/mcL (1.6-8.9); Platelet Count 198 K/mcL (140-400); Red Cell Distribution Width 14.3 % (11.5-14.5); Segmented Neutrophils % 81.9 %
[2018-03-10 07:11] LABS: Aspartate Amino Transferase 21 Units/L (13-39); BUN/Creatinine Ratio 12 (6-26); Blood Urea Nitrogen 10 mg/dL (6-20); eGFR For Non-African Americans > 60 (> 60)
[2018-03-10] MEDS: Ibuprofen 600 MG TABLET PO PRN ×3 (08:57→22:19)
[2018-03-10] MEDS: Prenatal Vit/FA 1 EACH TABLET PO SCH (08:57)
[2018-03-10] MEDS ORDERED: NON-FORMULARY MEDICATION 1 EACH EACH (Pnv Cmb#21/Iron/Folic Acid [Prenatal Complete Caplet PO SCH (09:00)
--- NOTE | 2018-03-10 09:15 | OB/GYN Progress Note ---
Date of Encounter: 03/10/18 Time of Encounter: 09:13 - Assessment and Plan (1) S/P section Current Visit: Yes Status: Acute Continue with plan of care Will begin PO azithromycin 500 mg for 5 days on 03/11. Begin keflex 500 mg PO TID on 03/11 AM (2) Prolonged antepartum rupture of membranes Current Visit: Yes Status: Acute Patient received antepartum antibiotics. (3) Gestational HTN Current Visit: No Status: Acute Patient on Magnesium - continue for 24 hours. Continue to monitor respiratory status and DTR for toxicity Continue Labetalol 300 mg TID Qualifiers: Trimester: unspecified trimester Qualified Code(s): O13.9 - Gestational [-induced] hypertension without significant proteinuria, unspecified trimester (4) Gestational diabetes Current Visit: No Status: Acute Patient currently on Metformin BID Likely d/c as glucose levels WNL. Qualifiers: Gestational diabetes mellitus control: oral hypoglycemic-controlled Tri mester: third trimester Qualified Code(s): O24.415 - Gestational diabetes mellitus in , controlled by oral hypoglycemic drugs Subjective - Subjective Principal diagnosis: Section Interval history: Patient pain well-controlled at this time. Mendoza catheter remains in place at this time. The patient passing gas. Patient has not been ambulating well but has calf pumps in place. The patient tolerating PO intake. Patient reports: appetite normal, pain well controlled, no nauseated Nutrioso: doing well Objective - Vital Signs Latest vital signs: Vital Signs Temp Pulse Resp BP Pulse Ox 03/10/18 09:10 91 15 142/87 03/10/18 08:10 76 14 148/96 03/10/18 07:51 98.2 F 76 14 146/83 92 03/10/18 06:57 86 14 138/81 03/10/18 05:58 76 14 136/71 03/10/18 05:15 72 16 138/78 03/10/18 04:00 76 16 136/81 03/10/18 03:15 85 16 142/84 03/10/18 02:00 73 14 132/72 03/10/18 01:00 98.3 F 81 18 117/75 95 03/09/18 23:50 97.8 F 87 18 133/70 96 03/09/18 23:20 98.2 F 76 16 125/69 97 03/09/18 22:35 89 18 140/82 03/09/18 21:35 93 18 118/71 03/09/18 20:55 86 18 108/53 Intake and Output 03/09/18 03/10/18 03/10/18 23:59 07:59 15:59 Intake Total 500 / 500 Output Total 1650 / 1650 850 / 850 250 / 250 Balance -1650 / -1650 -350 / -350 -250 / -250 Intake: IV Fluids 500 / 500 Magnesium Sulfate Premix 20 gm/ 500 / 500 500mL 20 gm In 500 ml @ 2 GM/HR 50 mls/hr IVC .Q10H KATHERIN Rx#: [id number] Output: Urine 650 / 650 850 / 850 250 / 250 Catheter 1000 / 1000 Other: Weight 98.8 kg - Exam Lungs: bilateral: normal (Without respiratory distress) Chest: Normal S1, Normal S2 Extremities: Present: normal, other (Patellar and achilles DTR +2 bilaterally without clonus.). Absent: tenderness, edema Abdomen: Present: normal appearance, soft Incision: Present: dressed (Gaston dressing in place with no discharge noted) Uterus: Present: normal, other (1 cm above umbilicus) - Labs Labs: Laboratory Results - last 24 hr 03/09/18 03/09/18 03/09/18 09:08 13:30 17:32 WBC RBC Hgb Hct MCV MCH MCHC RDW Plt Count MPV Immature Gran % Seg Neutrophils % Lymphocytes % Monocytes % Eosinophils % Basophils % Neutrophils # Lymphocytes # Monocytes # Eosinophils # Basophils # BUN Creatinine Est GFR ( Amer) Est GFR (Non-Af Amer) BUN/Creatinine Ratio POC Glucose 76 82 90 AST ALT Lactate Dehydrogenase Urine Creatinine Protein/Creatinin Ratio Urine Total Protein 03/09/18 03/10/18 03/10/18 22:04 06:00 06:40 WBC 23.7 H D RBC 4.20 Hgb 13.1 Hct 39.2 MCV 93.3 MCH 31.2 MCHC 33.4 RDW 14.3 Plt Count 198 MPV 10.7 Immature Gran % 0.9 Seg Neutrophils % 81.9 Lymphocytes % 9.2 Monocytes % 7.5 Eosinophils % 0.0 Basophils % 0.5 Neutrophils # 19.4 H Lymphocytes # 2.2 Monocytes # 1.8 H Eosinophils # 0.0 Basophils # 0.1 BUN Creatinine Est GFR ( Amer) Est GFR (Non-Af Amer) BUN/Creatinine Ratio POC Glucose 108 H AST ALT Lactate Dehydrogenase Urine Creatinine 60 Protein/Creatinin Ratio 0.47 H Urine Total Protein 28 H 03/10/18 03/10/18 03/10/18 06:40 06:40 06:40 WBC RBC Hgb Hct MCV MCH MCHC RDW Plt Count MPV Immature Gran % Seg Neutrophils % Lymphocytes % Monocytes % Eosinophils % Basophils % Neutrophils # Lymphocytes # Monocytes # Eosinophils # Basophils # BUN 10 Creatinine 0.82 Est GFR ( Amer) > 60 Est GFR (Non-Af Amer) > 60 BUN/Creatinine Ratio 12 POC Glucose AST 21 ALT 10 Lactate Dehydrogenase 266 Urine Creatinine Protein/Creatinin Ratio Urine Total Protein - Allied health notes Allied health notes reviewed: nursing
[2018-03-10] MEDS ORDERED: Azithromycin 500 MG VIAL ONE (22:11)
[2018-03-10] MEDS: Azithromycin 500 MG in D5% in Water 250 ML IVPB SCH (22:18)
[2018-03-10] MEDS: *HR* OxyCODONE/APAP 5/325 TABLET PO PRN (22:19)
[2018-03-11] MEDS: *HR* OxyCODONE/APAP 5/325 TABLET PO PRN (06:49)
[2018-03-11] MEDS: Ibuprofen 600 MG TABLET PO PRN (06:49)
[2018-03-11] MEDS: Prenatal Vit/FA 1 EACH TABLET PO SCH (08:53)
--- NOTE | 2018-03-11 10:22 | Discharge Summary ---
Date of Encounter: 03/11/18 Time of Encounter: 10:18 - Discharge Diagnosis (1) Chronic hypertension Priority: Secondary Status: Acute Comments: Discharge home on 200mg Labetalol BID. Follow-up with Dr. Hannah for CHTN management. (2) S/P section Priority: Primary Status: Acute Comments: Pt meeting Post-op day 2 milestones. +flatus, denies BM. Reports pain managed by Ibuprofen and Percocet. Discussed control options and safe spacing. Considering Mirena IUD vs mini-pill. Pt working on and pumping. Has a pump at home. Anticipate discharge home today. (3) Gestational diabetes Priority: Secondary Status: Acute Comments: 2hr GTT at 6 weeks Qualifiers: Gestational diabetes mellitus control: oral hypoglycemic-controlled Trimester: third trimester Qualified Code(s): O24.415 - Gestational diabetes mellitus in , controlled by oral hypoglycemic drugs (4) Pre-eclampsia Priority: Secondary Status: Acute Comments: Denies s/x of pre-eclampsia. Qualifiers: Trimester: third trimester Qualified Code(s): O14.93 - Unspecified pre- eclampsia, third trimester - Discharge Medications Prescriptions: Ibuprofen [Motrin] 600 mg PO Q6HR PRN #60 tablet PRN Reason: Cramping OxyCODONE/APAP 5/325 [Percocet 5/325 MG] 1 each PO Q6HR PRN 7 Days #28 tablet PRN Reason: Moderate pain 4-6 Azithromycin [Zithromax] 500 mg PO DAILY #10 tablet Breast Pump [BREAST PUMP] 1 each .ROUTE AD #1 each Cephalexin [Keflex] 500 mg PO BID #10 capsule Docusate [Colace] 100 mg PO BID #60 capsule Labetalol HCl 200 mg PO BID #30 tablet Home Medications: Citalopram Hydrobromide [Celexa] 20 mg PO DAILY 11/23/17 [History] Pnv Cmb#21/Iron/Folic Acid [ Complete Caplet] 1 each PO DAILY 11/23/17 [History] Azithromycin [Zithromax] 500 mg PO DAILY #10 tablet 03/11/18 [Rx] Breast Pump [BREAST PUMP] 1 each .ROUTE AD #1 each 03/11/18 [Rx] Cephalexin [Keflex] 500 mg PO BID #10 capsule 03/11/18 [Rx] Docusate [Colace] 100 mg PO BID #60 capsule 03/11/18 [Rx] Ibuprofen [Motrin] 600 mg PO Q6HR PRN #60 tablet 03/11/18 [Rx] Labetalol HCl 200 mg PO BID #30 tablet 03/11/18 [Rx] OxyCODONE/APAP 5/325 [Percocet 5/325 MG] 1 each PO Q6HR PRN 7 Days #28 tablet 03/11/18 [Rx] Simethicone [Gas-X] 80 mg PO TID PRN tab.chew 03/11/18 [Rx] Allergies/Adverse Reactions: Allergy/AdvReac Type Severity Reaction Status Date / Time No Known Allergies Allergy Verified 03/08/18 06:17 Data Procedures and tests throughout hospitalization: Laboratory Tests 03/08/18 03/08/18 03/08/18 06:28 06:28 06:28 WBC 13.2 H RBC 4.62 Hgb 14.3 Hct 42.4 MCV 91.8 MCH 31.0 MCHC 33.7 RDW 13.7 Plt Count 244 MPV 11.3 Immature Gran % 0.8 Seg Neutrophils % 64.2 Lymphocytes % 27.2 Monocytes % 6.4 Eosinophils % 0.9 Basophils % 0.5 Neutrophils # 8.5 Lymphocytes # 3.6 Monocytes # 0.8 Eosinophils # 0.1 Basophils # 0.1 BUN Creatinine Est GFR ( Amer) Est GFR (Non-Af Amer) BUN/Creatinine Ratio Glucose POC Glucose Uric Acid AST ALT Lactate Dehydrogenase Urine Creatinine Protein/Creatinin Ratio Urine Total Protein Urine Opiates Screen Negative Ur Barbiturates Screen Negative Ur Phencyclidine Scrn Negative Ur Amphetamines Screen Negative U Benzodiazepines Scrn Negative Urine Cocaine Screen Negative U Marijuana (THC) Screen Negative Ur Drug Screen Interp See Below Blood Type O POSITIVE 03/08/18 03/08/18 03/08/18 06:28 06:28 08:54 WBC RBC Hgb Hct MCV MCH MCHC RDW Plt Count MPV Immature Gran % Seg Neutrophils % Lymphocytes % Monocytes % Eosinophils % Basophils % Neutrophils # Lymphocytes # Monocytes # Eosinophils # Basophils # BUN 11 Creatinine 0.70 Est GFR ( Amer) > 60 Est GFR (Non-Af Amer) > 60 BUN/Creatinine Ratio 16 Glucose 107 H POC Glucose 86 Uric Acid 7.3 AST 19 ALT 17 Lactate Dehydrogenase 201 Urine Creatinine 144 Protein/Creatinin Ratio 0.10 Urine Total Protein 15 H Urine Opiates Screen Ur Barbiturates Screen Ur Phencyclidine Scrn Ur Amphetamines Screen U Benzodiazepines Scrn Urine Cocaine Screen U Marijuana (THC) Screen Ur Drug Screen [facility] Blood Type 03/09/18 03/09/18 03/09/18 09:08 13:30 17:32 WBC RBC Hgb Hct MCV MCH MCHC RDW Plt Count MPV Immature Gran % Seg Neutrophils % Lymphocytes % Monocytes % Eosinophils % Basophils % Neutrophils # Lymphocytes # Monocytes # Eosinophils # Basophils # BUN Creatinine Est GFR ( Amer) Est GFR (Non-Af Amer) BUN/Creatinine Ratio Glucose POC Glucose 76 82 90 Uric Acid AST ALT Lactate Dehydrogenase Urine Creatinine Protein/Creatinin Ratio Urine Total Protein Urine Opiates Screen Ur Barbiturates Screen Ur Phencyclidine Scrn Ur Amphetamines Screen U Benzodiazepines Scrn Urine Cocaine Screen U Marijuana (THC) Screen Ur Drug Screen [facility] Blood Type 03/09/18 03/10/18 03/10/18 22:04 06:00 06:40 WBC 23.7 H D RBC 4.20 Hgb 13.1 Hct 39.2 MCV 93.3 MCH 31.2 MCHC 33.4 RDW 14.3 Plt Count 198 MPV 10.7 Immature Gran % 0.9 Seg Neutrophils % 81.9 Lymphocytes % 9.2 Monocytes % 7.5 Eosinophils % 0.0 Basophils % 0.5 Neutrophils # 19.4 H Lymphocytes # 2.2 Monocytes # 1.8 H Eosinophils # 0.0 Basophils # 0.1 BUN Creatinine Est GFR ( Amer) Est GFR (Non-Af Amer) BUN/Creatinine Ratio Glucose POC Glucose 108 H Uric Acid AST ALT Lactate Dehydrogenase Urine Creatinine 60 Protein/Creatinin Ratio 0.47 H Urine Total Protein 28 H Urine Opiates Screen Ur Barbiturates Screen Ur Phencyclidine Scrn Ur Amphetamines Screen U Benzodiazepines Scrn Urine Cocaine Screen U Marijuana (THC) Screen Ur Drug Screen [facility] Blood Type 03/10/18 03/10/18 03/10/18 06:40 06:40 06:40 WBC RBC Hgb Hct MCV MCH MCHC RDW Plt Count MPV Immature Gran % Seg Neutrophils % Lymphocytes % Monocytes % Eosinophils % Basophils % Neutrophils # Lymphocytes # Monocytes # Eosinophils # Basophils # BUN 10 Creatinine 0.82 Est GFR ( Amer) > 60 Est GFR (Non-Af Amer) > 60 BUN/Creatinine Ratio 12 Glucose POC Glucose Uric Acid AST 21 ALT 10 Lactate Dehydrogenase 266 Urine Creatinine Protein/Creatinin Ratio Urine Total Protein Urine Opiates Screen Ur Barbiturates Screen Ur Phencyclidine Scrn Ur Amphetamines Screen U Benzodiazepines Scrn Urine Cocaine Screen U Marijuana (THC) Screen Ur Drug Screen Interp Blood Type Date of admission: 03/08/18 06:03 Primary care physician: PCP NONE Discharging clinician: Alana Orellana Anticipated date of discharge: 03/11/18 - Patient Status Disposition: Home, Self-Care Condition: Good Overall status at discharge: patient is progressing back to baseline - Discharge Instructions Follow Up With: NONE,PCP [Primary Care Provider] - Gage Garvey MD [Partnered Physician] - Robin Hannah MD [Partnered Physician] - - Diet and Activity Activity: increase activity as tolerated Diet: advance to your usual diet Hospital Course Reason for admission: induction of labor, IUP at term Delivery: section Episiotomy: none Laceration: none Other procedures: none complications: none Discharge diagnosis: IUP at term delivered, failed induction baby: male Hospital course: - Date of procedure: 03/09/18 Preop diagnosis: arrest of descent, arrest of dilation Post-op diagnosis: same Procedure: repeat low transverse Surgeon: Gage Garvey Quantitated Blood Loss: 500 Was there an post production assistant present: Roya Anesthesiologist: Deanna Ramos Anesthesia Type: Epidural section complications: none Disposition: PACU Specimens: Placenta - (s) Infant A Delivery Date: 03/09/18 Presentation: vertex Position: ALEIDA Gender: Male Viability: Viable Pounds: 6 Ounces: 12 Gram Weight: 3055 kg at 1 minute: 1 at 5 minutes: 2 at 10 minutes: 5 9/15 Shoulder Dystocia: not encountered Placenta: complete extraction Time Attestation: Total time spent providing and/or coordinating discharge services: - VTE Reasons for not Prescribing Prophylaxis: Medical contraindication Documentation of Mechanical Device: Intermittent pneumatic compression device Exam - Constitutional Vitals: Temp Pulse Resp BP Pulse Ox 98.6 F 91 16 144/65 98 03/11/18 07:35 03/11/18 07:35 03/11/18 07:35 03/11/18 07:35 03/11/18 04:36 General appearance IM: A&O X 3, pleasant, no acute distress - Respiratory Respiratory exam: Present: CTAB - Cardiovascular Cardiovascular exam IM: Present: RRR - GI/Abdominal GI/Abdominal exam IM: normal bowel sounds Incision: dressed (JACINTO dressing in place ) - Uterine Tone: Firm Uterus Position: 1 Finger Below Umbilicus, Midline - Extremities Exam Extremities exam IM: Present: normal capillary refill, pedal edema (1+). Absent: calf tenderness, tenderness - Neurological Exam Neurological exam: alert, oriented X3, reflexes normal
[2018-03-11 13:45] VITALS: BP 130/80
== END 2018-03-11 13:34 | disposition home or self-care (01) | DRG 540 ==
LOC: 1NENULAB 06:03 → 1NENUOBS 03-10 00:57
PROVIDERS: ADMIT Advanced Practice Midwife; ATTEND Obstetrics & Gynecology

== ENCOUNTER 2020-10-28 05:31 | Inpatient (IN) ==
[2020-10-28] MEDS ORDERED: Ringers Solution, Lactated 1,000 ML IVC ONE (05:48)
[2020-10-28] MEDS ORDERED: Metoclopramide 10 MG/2 ML VIAL IVP ONE (05:48)
[2020-10-28] MEDS ORDERED: Famotidine 20 MG/2 ML VIAL IVP ONE (05:48)
[2020-10-28] MEDS ORDERED: CeFAZolin 2,000 MG/120 ML BAG IVPB ONE (05:48)
[2020-10-28] MEDS ORDERED: Oxytocin 20 units/ LR 1000 mL 20 UNIT/1,000 ML BAG IVC ONE (05:48)
[2020-10-28] MEDS ORDERED: Ringers Solution, Lactated 1,000 ML IVC SCH (06:00)
[2020-10-28] MEDS ORDERED: Oxytocin 20 units/ LR 1000 mL 20 UNIT/1,000 ML BAG IVC SCH ×3 (06:00→11:09)
[2020-10-28 06:25] LABS: Basophils # 0.1 K/mcL (0.0-0.2); Basophils % 0.6 %; Eosinophils # 0.1 K/mcL (0.0-0.6); Eosinophils % 1.2 %; Hematocrit 37.3 % (35.3-44.9); Hemoglobin 12.4 g/dL (11.5-15.4); Immature Granulocytes % 0.5 % (0-4); Lymphocytes # 2.7 K/mcL (0.6-4.6); Lymphocytes % 22.3 %; Mean Corpuscular HGB Conc 33.2 g/dL (31.6-35.5); Mean Corpuscular Hemoglobin 30.8 pg (28.0-33.3); Mean Corpuscular Volume 92.6 fL (83.0-100.0); Mean Platelet Volume 9.6 fL (9.4-12.4); Monocytes # 0.8 K/mcL (0.0-1.3); Monocytes % 6.9 %; Neutrophils # 8.2 K/mcL (1.6-8.9); Platelet Count 229 K/mcL (140-400); Red Blood Count 4.03 M/mcL (3.82-4.97); Red Cell Distribution Width 14.2 % (11.5-14.5); Segmented Neutrophils % 68.5 %
[2020-10-28 06:57] LABS: Influenza A PCR Negative (Negative); Influenza B PCR Negative (Negative); Resp. Syncytial Virus PCR Negative (Negative)
[2020-10-28 06:58] LABS: SARS-CoV-2 by PCR (In House) Negative (Negative)
[2020-10-28] MEDS ORDERED: *HR* FentaNYL (PF) 100 MCG/2 ML VIAL IVP PRN (07:14)
[2020-10-28] MEDS ORDERED: *HR* OxyCODONE Immed Rel 5 MG TABLET PO PRN (07:14)
[2020-10-28 10:23] LABS: Amphetamine Screen,Urine Negative ng/mL (Cutoff=1000); Barbiturate Screen,Urine Negative ng/mL (Cutoff=200); Benzodiazepines Screen,Urine Negative ng/mL (Cutoff=200); Cannabinoid Screen,Urine Negative ng/mL (Cutoff = 50); Cocaine Screen,Urine Negative ng/mL (Cutoff= 300); Opiate Screen,Urine Negative ng/mL (Cutoff=300); Phencyclidine Screen,Urine Negative ng/mL (Cutoff=25)
[2020-10-28] MEDS ORDERED: Simethicone 80 MG TAB.CHEW PO PRN (11:09)
[2020-10-28] MEDS ORDERED: Ondansetron 4 MG/2 ML VIAL IVP PRN (11:09)
[2020-10-28] MEDS ORDERED: Prenatal Vit/FA 1 EACH TABLET PO SCH (11:09)
[2020-10-28] MEDS ORDERED: Metoclopramide 10 MG/2 ML VIAL IVP PRN (11:09)
[2020-10-28] MEDS: Ibuprofen 600 MG TABLET PO SCH ×3 (12:00→18:28)
[2020-10-28] MEDS ORDERED: Lanolin 7 G OINT...G. TP PRN (20:00)
[2020-10-28] MEDS: Acetaminophen 325 MG TABLET PO SCH (20:42)
[2020-10-29] MEDS: Acetaminophen 325 MG TABLET PO SCH ×2 (02:48→08:06)
[2020-10-29] MEDS ORDERED: *HR* OxyCODONE Immed Rel 5 MG TABLET PO PRN (03:00)
[2020-10-29 04:20] VITALS: PULSE 74
[2020-10-29] MEDS: Ibuprofen 600 MG TABLET PO SCH (08:07)
[2020-10-29 13:41] VITALS: BP 128/76; TEMP 98.6; O2SAT 95
== END 2020-10-29 14:00 | disposition home or self-care (01) | DRG 787 ==
LOC: 1NENULAB 05:31 → 1NENUOBS 11:05
PROVIDERS: ADMIT Obstetrics & Gynecology; ATTEND Obstetrics & Gynecology